=== PATIENT | male | born 1960 | race Caucasian/White ===

== ENCOUNTER → 2018-03-05 | Outpatient (CLI) | payer BC ==
--- NOTE | 2018-03-05 11:44 | US ---
EXAMINATION TYPE: US thyroid st tissue head/neck DATE OF EXAM: 03/05/2018 COMPARISON: NONE CLINICAL HISTORY: R22.1 Lump in Neck. Patient feels lump back of neck for two months, has not changed since patient first felt and is not tender. Scanned directly over lump patient feels on back of neck, there is a hypoechoic lesion with an echoge [facility] that measures 1.0 x 0.3 x 0.6 cm. There is some internal vascularity noted. IMPRESSION: Findings suggest benign lymph node.
== END | disposition home or self-care (01) ==
LOC: RADUSWWP 07:21
PROVIDERS: ATTEND Internal Medicine
DX: R22.1 Localized swelling, mass and lump, neck (principal)
CPT/HCPCS: 76536

== ENCOUNTER → 2018-12-27 | Outpatient (CLI) | payer BC ==
--- NOTE | 2018-12-27 12:26 | MR ---
EXAMINATION TYPE: MR brain wo/w con DATE OF EXAM: 12/27/2018 COMPARISON: None HISTORY: Rt eye vision problem, Optic neuropathy TECHNIQUE: Multiplanar, multisequence images of the brain and brainstem is performed without and with IV contras t, utilizing 10 mL intravenous Gadavist . FINDINGS: Diffusion weighted images demonstrate no evidence of a recent infarct or other diffusion ab normality. There are a few scattered areas of abnormal signal within the white matter which are nonsp ecific. No enhancing lesions. All measure less than 5 mm. Cerebellar tonsils are low-lying in position at the level the foramen magnum. No tonsillar beaking. T here appears to be slight asymmetry in the size of the optic nerves bilaterally left is somewhat dimi nutive relative to the right. Changes of moderate chronic sinusitis. Nasal septal deviation noted. IMPRESSION: 1. Changes of chronic sinusitis. 2. Slight asymmetry in size of the optic nerves correlate clinically. If clinically warranted correla te with MRI of the orbits. 3. Very mild nonspecific white matter changes associated with migraine headaches, hypertension, remot e microvascular ischemia, although demyelinating process not entirely excluded. Correlate clinically.
== END ==
LOC: RADMRIMAIN 10:30
PROVIDERS: ATTEND Ophthalmology
DX: G43.909 Migraine, unspecified, not intractable, without status migrainosus (principal); R90.89 Other abnormal findings on diagnostic imaging of central nervous system; I10 Essential (primary) hypertension; H47.011 Ischemic optic neuropathy, right eye
CPT/HCPCS: 70553; A9585

== ENCOUNTER 2020-10-30 11:42 | Day surgery (SDC) | payer BC ==
[2020-10-26 16:01] VITALS: BMI 33.0
[~2020-10-30 11:42] MED LIST: LACTATED RINGERS 1,000 ML IV SCH
[2020-10-30 12:14] VITALS: RESP 16; TEMP 98.3
[2020-10-30] MEDS ORDERED: PROPOFOL 10 MG/ML 20 ML VIAL IV ONE (13:01)
[2020-10-30] MEDS ORDERED: LIDOCAINE 1% INJ 10MG/ML (20 ML MDV) ONE (13:01)
--- NOTE | 2020-10-30 13:16 | P.OP ---
Date of Procedure: 10/30/20 Preoperative Diagnosis: Screening Postoperative Diagnosis: Same Procedure(s) Performed: Colonoscopy Condition: stable Disposition: PACU Description of Procedure: Patient with operative suite placed in the left lateral decubitus position with sedation per department of anesthesia prepped and draped usual sterile fashion timeout performed correct patient correct procedure correct site was verified rectal exam was performed no gross abnormalities noted. scope was passed from the rectum to the cecum with the slowly withdrawn make sure to visualize all sharma of the colon on the way out there was one small polyp was noted in the transverse colon this was removed via hot snare polypectomy. No other abnormalities noted. The scope was retroflexed in the rectum no gross abnorm alities was removed patient tolerated procedure well no apparent complications repeat colonoscopy in 5 years
[2020-10-30 13:36] VITALS: BP 149/86; PULSE 64
== END 2020-10-30 13:59 | disposition home or self-care (01) ==
LOC: ORWHC2ENDO 11:42
PROVIDERS: ATTEND Student in an Organized Health Care Education/Training Program
DX: K92.2 Gastrointestinal hemorrhage, unspecified (principal); D12.3 Benign neoplasm of transverse colon; R19.4 Change in bowel habit; G40.909 Epilepsy, unspecified, not intractable, without status epilepticus; E04.9 Nontoxic goiter, unspecified; I10 Essential (primary) hypertension; E78.00 Pure hypercholesterolemia, unspecified; E89.0 Postprocedural hypothyroidism; E78.5 Hyperlipidemia, unspecified; G47.33 Obstructive sleep apnea (adult) (pediatric); Z98.890 Other specified postprocedural states; Z87.39 Personal history of other diseases of the musculoskeletal system and connective tissue; Z79.899 Other long term (current) drug therapy; Z79.890 Hormone replacement therapy; Z99.89 Dependence on other enabling machines and devices; Z91.89 Other specified personal risk factors, not elsewhere classified; Z80.9 Family history of malignant neoplasm, unspecified; Z82.49 Family history of ischemic heart disease and other diseases of the circulatory system; Z80.1 Family history of malignant neoplasm of trachea, bronchus and lung
CPT/HCPCS: 45385; 88305; J2001; J2704

== ENCOUNTER → 2021-12-14 | Outpatient (CLI) | payer BC ==
--- NOTE | 2021-12-15 04:25 | MR ---
EXAMINATION TYPE: MR iac wo/w con DATE OF EXAM: 12/14/2021 COMPARISON: 12/27/2018 HISTORY: Meniere's disease, hearing loss right ear since Aug 2021, vertigo CONTRAST: Standard multiplanar, multisequence MRI departmental protocol images were obtained without contrast a nd with 11 mL intravenous Gadavist gadolinium contrast. There is minimal cerebral atrophy. There is no mass effect nor midline shift. There is no evidence of intracranial hemorrhage. Diffusion images show no sign of an acute infarct. Brainstem is intact. Gra y and white matter structures have fairly normal signal pattern. There is no evidence of cerebral eliza ma. There is some mild mucosal thickening in the ethmoid air cells. Corpus callosum is intact. Sella turc ica appears normal. Images through the posterior fossa show normal internal auditory canals. The acoustic nerve and vesti bular nerve appear normal. There is no cerebellopontine angle mass. There is normal signal pattern of the mastoid sinuses and temporal bones. No evidence of mastoiditis. No evidence of any pathologic enhancement in the posterior fossa. IMPRESSION: Negative MR scan of the brain. I do not see a cause for hearing loss. Minimal ethmoid sinusitis. Sinusitis improved compared to old exam.
== END | disposition home or self-care (01) ==
LOC: RADMRIMAIN 14:27
PROVIDERS: ATTEND Otolaryngology
DX: J32.2 Chronic ethmoidal sinusitis (principal)
CPT/HCPCS: 70553; A9585

== ENCOUNTER 2025-02-18 08:44 | Emergency (ER) | payer BC ==
[2025-02-18 08:48] VITALS: RESP 18
[2025-02-18 10:15] LABS: Basophils # (A) 0.05 10*3/uL (0.00-0.10); Basophils % (A) 0.6 %; Eosinophils # (A) 0.34 10*3/uL (0.04-0.35); Eosinophils % (A) 4.1 %; HCT 44.6 % (39.6-50.0); HGB 15.5 g/dL (13.0-17.0); Lymphocytes % (A) 24.3 %; MCH 28.7 pg (27.0-32.0); MCHC 34.8 g/dL (32.0-37.0); MCV 82.6 fL (80.0-97.0); Mean Platelet Volume 8.8 fL (9.5-12.2); Monocytes # (A) 0.62 10*3/uL (0.20-1.00); Monocytes % (A) 7.5 %; Neutrophils # (A) 5.19 10*3/uL (1.80-7.70); Neutrophils % (A) 63.1 %; Platelet Count 310 10*3/uL (140-440); RDW 12.3 % (11.5-14.5); WBC 8.23 10*3/uL (4.50-10.00)
--- NOTE | 2025-02-18 10:25 | US ---
EXAMINATION TYPE: US venous doppler duplex LE LT DATE OF EXAM: 02/18/2025 10:10 AM COMPARISON: NONE CLINICAL INDICATION: Male, 64 years old with history of eval for dvt; Swelling per patient. No injury , Pain TECHNIQUE: The lower extremity deep venous system is examined utilizing real time linear array sonog noble with graded compression, color doppler sonography, and spectral doppler. SIDE PERFORMED: Left FINDINGS: VESSELS IMAGED: Common Femoral Vein Deep Femoral Vein Greater Saphenous Vein * Femoral Vein Popliteal Vein Small Saphenous Vein * Proximal Calf Veins Posterior tibial veins (* superficial vessels) Left Leg: Negative for DVT, Color Doppler imaging shows patency of the vessels. Spectral waveforms a re within normal limits. IMPRESSION: No evidence for DVT within the left lower extremity. [facility], , 02/18/2025 10:23 AM
--- NOTE | 2025-02-18 10:26 | US ---
EXAMINATION TYPE: US extremity nonvasc mass LT DATE OF EXAM: 02/18/2025 COMPARISON: NONE CLINICAL INDICATION: Male, 64 years old with history of swelling of medial thigh; TECHNIQUE: Sonographic soft tissue images taken at the area of concern. 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 No abnormality seen. IMPRESSION: No discrete sonographic abnormality along the medial left thigh area of concern. Any swel ling or palpable area can be followed clinically. If any enlargement is noted, the patient can be res canned. [facility], , 02/18/2025 10:24 AM
[2025-02-18 10:36] LABS: ALT 45 U/L (4-49); African American GFR (CKD) 82 (>60 ml/min/1.73 sqM); Albumin 4.5 g/dL (3.5-5.0); Anion Gap 9 mmol/L; Blood Urea Nitrogen 22 mg/dL (9-20); Calcium 9.5 mg/dL (8.4-10.2); Carbon Dioxide 26 mmol/L (22-30); Chloride 105 mmol/L (98-107); Creatine Kinase 293 U/L (55-170); Glucose 100 mg/dL (74-99); Non-African American GFR(CKD) 71 (>60 ml/min/1.73 sqM); Sodium 140 mmol/L (137-145); Total Protein 7.1 g/dL (6.3-8.2)
[2025-02-18 10:43] LABS: AST 39 U/L (17-59); Magnesium 1.8 mg/dL (1.6-2.3); Potassium 3.8 mmol/L (3.5-5.1)
[2025-02-18 10:44] LABS: Alkaline Phosphatase 70 U/L (38-126)
--- NOTE | 2025-02-18 12:17 | ED ---
General Adult HPI - General Chief complaint: Extremity Problem,Nontraumatic Stated complaint: Swelling in right thigh Time Seen by Provider: 02/18/25 09:10 Source: patient, RN notes reviewed, old records reviewed Limitations: no limitations - History of Present Illness Initial comments: Patient is a 64-year-old male who presents emergency department complaining of possible swelling to the inner left thigh. States he started a workout this week and started some swelling of the inner left thigh. No throat redness. No drainage. Is not on blood thinners. No obvious injuries. No fevers or chills. No other acute complaints. Presents for further evaluation at this time. Is concerned for possible clot. Is localized to the inferior medial left thigh. No posterior leg pain. - Related Data Home Medications Medication Instructions Recorded Confirmed Atorvastatin [Lipitor] 40 mg PO DAILY 12/28/18 02/18/25 Folic Acid 1 mg PO DAILY 12/28/18 02/18/25 Topiramate [Topamax] 200 mg PO BID 12/28/18 02/18/25 lamoTRIgine [LaMICtal] 200 mg PO BID 12/28/18 02/18/25 Brimonidine Tartrate [Alphagan P 1 drop BOTH EYES BID 02/18/25 02/18/25 0.2% Ophth Soln] Levothyroxine Sodium [Synthroid] 125 mcg PO DAILY 02/18/25 02/18/25 Triamterene-Hctz 37.5-25Mg 1 cap PO DAILY 02/18/25 02/18/25 [Dyazide 37.5-25 Capsule] Allergies Allergy/AdvReac Type Severity Reaction Status Date / Time No Known Allergies Allergy Verified 02/18/25 12:49 Review of Systems ROS Statement: Those systems with pertinent positive or pertinent negative responses have been documented in the HPI. Review of Systems: CONST: Denies fever EYES: Denies blurry vision ENT: Denies nasal congestion C/V: Denies Chest pain RESP: Denies shortness of breath GI: Denies abdominal pain : Denies dysuria SKIN: Denies rash. MSK: Endorses left thigh swelling NEURO: Denies headache ROS Other: All systems not noted in ROS Statement are negative. Past Medical History Past Medical History: Seizure Disorder, Sleep Apnea/CPAP/BIPAP, Thyroid Disorder Additional Past Medical History / Comment(s): USES C-PAP MACHINE, LAST SEIZURE SEP 1999, THYROID REMOVED (NODULES), BLOOD IN STOOL. History of Any Multi-Drug Resistant Organisms: None Reported Past Surgical History: Orthopedic Surgery Additional Past Surgical History / Comment(s): THYROID REMOVED DUE TO NODULES, COLONOSCOPY, LEFT KNEE ARTHROSCOPY X2., LEFT ARM BICEP SURGERY AND RADIAL NERVE SEVERED -SURGERY WITH TENDON TRANSFER. Past Anesthesia/Blood Transfusion Reactions: Postoperative Nausea & Vomiting (PONV) Past Psychological History: No Psychological Hx Reported Smoking Status: Never smoker Past Alcohol Use History: Occasional Past Drug Use History: None Reported - Past Family History Father Family Medical History: Cancer Sister(s) Family Medical History: Cancer Additional Family Medical History / Comment(s): LUNG MASS General Exam - General Exam Comments Initial Comments: General: Appears in no acute distress. HEAD: Normal with no signs of head trauma. EYES: EOMI ENT: Hearing grossly intact, normal oropharynx. RESPIRATORY: Clear breath sounds bilaterally. No wheezes, rales, or rhonchi. C/V: Regular rate and rhythm. S1 and S2 auscultated, no edema, peripheral pulses 2+ and intact throughout ABD: Abd is soft, nontender, nondistended EXT: Normal range of motion, no obvious deformity. Normal range of motion of all 4 extremities. No tenderness to palpation of the left lower extremity. N eurovascular intact left lower extremity. Some mild edema to the medial aspect of the hamstring muscles on the left with no obvious injury. No obvious infection. The swelling is not erythematous. Is not painful. Is not fluctuant. SKIN: No rashes or lesions observed on exposed skin. NEURO: Alert and oriented x 4. Limitations: no limitations Course Vital Signs 02/18/25 02/18/25 08:45 12:21 Temperature 97.7 F 98.5 F Pulse Rate 64 68 Respiratory 18 18 Rate Blood Pressure 174/75 160/74 O2 Sat by Pulse 96 99 Oximetry Medical Decision Making - Medical Decision Making Was pt. sent in by a medical professional or institution (, PA, CLAIMS ADJUSTER CROP, urgent care, hospital, or snf...) When possible be specific @ -No Did you speak to anyone other than the patient for history (EMS, parent, family, police, friend...)? What history was obtained from this source @ -No Did you review nursing and triage notes (agree or disagree)? Why? @ -I reviewed and agree with nursing and triage notes Were old charts reviewed (outside hosp., previous admission, EMS record, old EKG, old radiological studies, urgent care reports/EKG's, snf records)? Report findings @ -No old charts were reviewed Differential Diagnosis (chest pain, altered mental status, abdominal pain women, abdominal pain men, vaginal bleeding, weakness, fever, dyspnea, syncope, headache, dizziness, GI bleed, back pain, seizure, CVA, palpatations, mental health, musculoskeletal)? @ -DVT, abscess, cyst. This list is not all inclusive. EKG interpreted by me (3pts min.). @ -None done X-rays interpreted by me (1pt min.). @ -None done CT interpreted by me (1pt min.). @ -None done U/S interpreted by me (1pt. min.). @ -DVT ultrasound negative for DVT. Soft tissue ultrasound unremarkable at the area of mild swelling. What testing was considered but not performed or refused? (CT, X-rays, U/S, labs)? Why? @ -I did offer CT imaging and it was ordered but patient changes mind. I believe this is reasonable as workup is unremarkable. Strict return precautions discussed and can repeat at a later date if needed. What meds were considered but not given or refused? Why? @ -None Did you discuss the management of the patient with other professionals (professionals i.e. , PA, CLAIMS ADJUSTER CROP, lab, RT, psych nurse, licensed clinical social worker, lithoduplicator operator, teacher, aviation ordnance officer, case management specialist)? Give summary @ -No Was smoking cessation discussed for >3mins.? @ -No Was critical care preformed (if so, how long)? @ -No Were there social determinants of health that impacted care today? How? (Homelessness, low income, unemployed, alcoholism, drug addiction, transportati on, low edu. Level, literacy, decrease access to med. care, correction, rehab)? @ -No Was there de-escalation of care discussed even if they declined (Discuss DNR or withdrawal of care, Hospice)? DNR status @ -No What co-morbidities impacted this encounter? (DM, HTN, Smoking, COPD, CAD, Cancer, CVA, ARF, Chemo, Hep., AIDS, mental health diagnosis, sleep apnea, morbid obesity)? @ -None Was patient admitted / discharged? Hospital course, mention meds given and route, prescriptions, significant lab abnormalities, going to OR and other pertinent info. @ -Patient presents with mild asymptomatic left medial distal posterior hamstring muscle swelling on the left leg. No obvious injury. Did recently start working out this week. Will obtain ultrasounds as well as basic labs. He was in agreement this plan. Ultrasounds negative for any obvious acute infectious process or DVT. No evidence of any obvious acute process on ultrasound at all. Labs are all within acceptable limits. Slight elevation in creatinine kinase likely related to recent workout. I discussed results with patient. We did discuss possibly obtaining CT to further evaluate as he is somewhat concerned however after normal workup, he does feel relieved and we will defer CT imaging at this time which I think is reasonable considering his unremarkable workup thus far. Strict return precautions discussed. Recommended follow-up with PCP. Recommended ice, rest, elevation. He was in agreement this plan. I instructed the patient to follow up with their PCP in the next 1-3 days. I explained that the patient should return to the emergency department if they experience any worsening symptoms. Strict return precautions were discussed with the patient. The patient expressed understanding of these instructions. I answe red all questions that the patient had. The patient was discharged home in good condition with their prescriptions and follow up information. Undiagnosed new problem with uncertain prognosis? @ -No Drug Therapy requiring intensive monitoring for toxicity (Heparin, Nitro, Insulin, Cardizem)? @ -No Were any procedures done? @ -No Diagnosis/symptom? @ -Myalgia Acute, or Chronic, or Acute on Chronic? @ -Acute Uncomplicated (without systemic symptoms) or Complicated (systemic symptoms)? @ -Uncomplicated Side effects of treatment? @ -No Exacerbation, Progression, or Severe Exacerbation? @ -No Poses a threat to life or bodily function? How? (Chest pain, USA, [place], pneumonia, PE, COPD, DKA, ARF, appy, cholecystitis, CVA, Diverticulitis, Homicidal, Suicidal, threat to staff... and all critical care pts) @ -Unlikely at this time - Lab Data Result diagrams: 02/18/25 09:38 02/18/25 09:38 Lab Results 02/18/25 02/18/25 02/18/25 Range/Units 09:38 09:38 09:38 WBC 8.23 (4.50-10.00) 10*3/uL RBC 5.40 (4.40-5.60) 10*6/uL Hgb 15.5 (13.0-17.0) g/dL Hct 44.6 (39.6-50.0) % MCV 82.6 (80.0-97.0) fL MCH 28.7 (27.0-32.0) pg MCHC 34.8 (32.0-37.0) g/dL Plt Count 310 (140-440) 10*3/uL MPV 8.8 L (9.5-12.2) fL Immature Gran % (Auto) 0.4 % Neutrophils % 63.1 % Lymphocytes % 24.3 % Monocytes % 7.5 % Eosinophils % 4.1 % Basophils % 0.6 % Immature Gran # 0.03 (0.00-0.04) 10*3/uL Neutrophils # 5.19 (1.80-7.70) 10*3/uL Lymphocytes # 2.00 (0.90-5.00) 10*3/uL Monocytes # 0.62 (0.20-1.00) 10*3/uL Eosinophils # 0.34 (0.04-0.35) 10*3/uL Basophils # 0.05 (0.00-0.10) 10*3/uL Sodium 140 (137-145) mmol/L Potassium 3.8 (3.5-5.1) mmol/L Chloride 105 (98-107) mmol/L Carbon Dioxide 26 (22-30) mmol/L Anion Gap 9 mmol/L BUN 22 H (9-20) mg/dL Creatinine 1.10 (0.66-1.25) mg/dL Est GFR (CKD-EPI)AfAm 82 (>60 ml/min/1.73 sqM) Est GFR (CKD-EPI)NonAf 71 (>60 ml/min/1.73 sqM) Glucose 100 H (74-99) mg/dL Plasma Lactic Acid Joe 1.3 (0.7-2.0) mmol/L Calcium 9.5 (8.4-10.2) mg/dL Magnesium 1.8 (1.6-2.3) mg/dL Total Bilirubin 1.0 (0.2-1.3) mg/dL AST 39 (17-59) U/L ALT 45 (4-49) U/L Alkaline Phosphatase 70 (38-126) U/L Creatine Kinase 293 H (55-170) U/L Total Protein 7.1 (6.3-8.2) g/dL Albumin 4.5 (3.5-5.0) g/dL Disposition Clinical Impression: Myalgia Disposition: HOME SELF-CARE Condition: Good Additional Instructions: Use Tylenol Motrin as needed for pain. Follow-up with PCP in the next 1 to 3 days. Ultrasounds revealed no evidence of blood clot or other obvious acute process. Labs returned relatively unremarkable. Unknown reason for the slightly increased swelling of the muscle body of what appears to be her hamstri ng muscle on the left. Follow-up with your PCP. Return if any worsening symptoms. No evidence of infection or blood clot at this time. Is patient prescribed a controlled substance at d/c from ED?: No Referrals: Madison Montgomery MD [Primary Care Provider] - 1-2 days Time of Disposition: 12:15
[2025-02-18 12:22] VITALS: BP 160/74; PULSE 68; TEMP 98.5
== END 2025-02-18 12:33 | disposition home or self-care (01) ==
LOC: EC 08:44
DX: M79.10 Myalgia, unspecified site (principal)
CPT/HCPCS: 36415; 80053; 82550; 83605; 83735; 85025; 99284